=== PATIENT | female | born 1955 | race Caucasian/White ===

== ENCOUNTER 2024-03-03 10:54 | Emergency (ER) | payer MEDICARE ==
[2024-03-03 11:34] VITALS: TEMP 98
--- NOTE | 2024-03-03 11:52 | ED ---
Lower Extremity Injury HPI - General Chief Complaint: Extremity Injury, Lower Stated Complaint: Fall-R knee injury Time Seen by Provider: 03/03/24 11:12 Source: patient, RN notes reviewed Mode of arrival: ambulatory Limitations: no limitations - History of Present Illness Initial Comments: This is a 68-year-old female presenting with for right knee injury that occurred yesterday. Patient states she was walking down her cement steps when she tripped and fell onto the pavement, catching herself with her hands striking fairly hard with her right knee. Patient currently rates pain 9.5 out of 10 and was unable to sleep due to pain. Patient states pain worsens with leg extension, but is able to fully straighten right knee/leg.. Patient states pain radiates upwards through quadricep. Denies distal paresthesia. patient endorses diffuse edema but was able to ambulate following the incident. Patient states she does not normally use a cane for walking problem today. MD Complaint: knee injury Onset/Timin -: days(s) Injury: Knee: Right Worsens With: movement, other (Knee extension) - Related Data Previous Rx's Medication Instructions Recorded Ketorolac [Toradol] 10 mg PO Q6HR #20 tab 03/03/24 Allergies Allergy/AdvReac Type Severity Reaction Status Date / Time No Known Allergies Allergy Verified 03/03/24 10:59 Review of Systems ROS Statement: Those systems with pertinent positive or pertinent negative responses have been documented in the HPI. ROS Other: All systems not noted in ROS Statement are negative. Past Medical History Past Medical History: No Reported History History of Any Multi-Drug Resistant Organisms: None Reported Past Surgical History: No Surgical Hx Reported Past Psychological History: No Psychological Hx Reported Smoking Status: Current every day smoker Past Alcohol Use History: Occasional Past Drug Use History: None Reported General Exam Limitations: no limitations General appearance: alert, in no apparent distress Head exam: Present: atraumatic, normocephalic, normal inspection Eye exam: Present: normal appearance, PERRL, EOMI. Absent: scleral icterus, conjunctival injection, periorbital swelling ENT exam: Present: normal exam, mucous membranes moist Neck exam: Present: normal inspection. Absent: tenderness, meningismus, lymphadenopathy Respiratory exam: Present: normal lung sounds bilaterally. Absent: respiratory distress, wheezes, rales, rhonchi, stridor Cardiovascular Exam: Present: regular rate, normal rhythm, normal heart sounds. Absent: systolic murmur, diastolic murmur, rubs, gallop, clicks GI/Abdominal exam: Present: soft, normal bowel sounds. Absent: distended, t enderness, guarding, rebound, rigid Extremities exam: Present: full ROM, tenderness (Positive diffuse right patellar and peripatellar tenderness and edema. Negative obvious crepitus or deformity. Negative overlying erythema or ecchymosis. Circular 2 cm shallow abrasion noted over patellar.), normal capillary refill, joint swelling, other (Negative [place]'s, varus/valgus. Positive reproducible pain with Jennifer's test). Absent: pedal edema, calf tenderness Back exam: Present: normal inspection Neurological exam: Present: alert, oriented X3, CN II-XII intact Psychiatric exam: Present: normal affect, normal mood Skin exam: Present: warm, dry, intact, normal color. Absent: rash Course Vital Signs 03/03/24 03/03/24 10:57 13:31 Temperature 98 F Pulse Rate 103 H 86 Respiratory 20 16 Rate Blood Pressure 125/78 128/76 O2 Sat by Pulse 99 97 Oximetry Medical Decision Making - Medical Decision Making Was pt. sent in by a medical professional or institution (, PA, BOTTLING LINE OPERATOR, urgent care, hospital, or senior care...) When possible be specific @ -No Did you speak to anyone other than the patient for history (EMS, parent, family, police, friend...)? What history was obtained from this source @ -No Did you review nursing and triage notes (agree or disagree)? Why? @ -I reviewed and agree with nursing and triage notes Were old charts reviewed (outside hosp., previous admission, EMS record, old EKG, old radiological studies, urgent care reports/EKG's, senior care records)? Report findings @ -No old charts were reviewed Differential Diagnosis (chest pain, altered mental status, abdominal pain women, abdominal pain men, vaginal bleeding, weakness, fever, dyspnea, syncope, headache, dizziness, GI bleed, back pain, seizure, CVA, palpatations, mental health, musculoskeletal)? @ -Knee contusion, patellar fracture, ligament sprain, meniscal tear EKG interpreted by me (3pts min.). @ -Not done X-rays interpreted by me (1pt min.). @ -Right knee x-ray reveals a horizontal patellar fracture with without obvious misalignment CT interpreted by me (1pt min.). @ -None done U/S interpreted by me (1pt. min.). @ -None done What testing was considered but not performed or refused? (CT, X-rays, U/S, labs)? Why? @ -None What meds were considered but not given or refused? Why? @ -None Did you discuss the management of the patient with other professionals (professionals i.e. , PA, BOTTLING LINE OPERATOR, lab, RT, psych nurse, social media director, senior wind energy consultant, teacher, space officer, oil field caser)? Give summary @ -No Was smoking cessation discussed for >3mins.? @ -No Was critical care preformed (if so, how long)? @ -No Were there social determinants of health that impacted care today? How? (Homelessness, low income, unemployed, alcoholism, drug addiction, transpor tation, low edu. Level, literacy, decrease access to med. care, [facility], rehab)? @ -No Was there de-escalation of care discussed even if they declined (Discuss DNR or withdrawal of care, Hospice)? DNR status @ -No What co-morbidities impacted this encounter? (DM, HTN, Smoking, COPD, CAD, Cancer, CVA, ARF, Chemo, Hep., AIDS, mental health diagnosis, sleep apnea, morbid obesity)? @ -None Was patient admitted / discharged? Hospital course, mention meds given and route, prescriptions, significant lab abnormalities, going to OR and other pertinent info. @ -Discharge. Knee x-ray results above. Patient notes pain relief with Toradol IM. Patient placed in full knee brace and advised follow-up with orthopedics for ongoing care. Ketorolac p.o. sent for ongoing pain management. Undiagnosed new problem with uncertain prognosis? @ -No Drug Therapy requiring intensive monitoring for toxicity (Heparin, Nitro, Insulin, Cardizem)? @ -No Were any procedures done? @ -No Diagnosis/symptom? @ -Default Acute, or Chronic, or Acute on Chronic? @ -Acute Uncomplicated (without systemic symptoms) or Complicated (systemic symptoms)? @ -Uncomplicated Side effects of treatment? @ -No Exacerbation, Progression, or Severe Exacerbation? @ -No Poses a threat to life or bodily function? How? (Chest pain, [place], [place], pneumonia, PE, COPD, DKA, ARF, appy, cholecystitis, CVA, Diverticulitis, Homicidal, Suicidal, threat to staff... and all critical care pts) @ -No Disposition Clinical Impression: Patellar fracture Disposition: HOME SELF-CARE Condition: Good Instructions (If sedation given, give patient instructions): Patellar Fracture (ED) Prescriptions: Ketorolac [Toradol] 10 mg PO Q6HR #20 tab Is patient prescribed a controlled substance at d/c from ED?: No Referrals: None,Stated [Primary Care Provider] - 1-2 days Time of Disposition: 13:22
[2024-03-03] MEDS: KETOROLAC 15 MG/ML 1 ML VIAL IM STA ×2 (11:59→13:24)
--- NOTE | 2024-03-03 12:52 | XR ---
EXAMINATION TYPE: XR knee 4V RT DATE OF EXAM: 03/03/2024 COMPARISON: NONE HISTORY: Pain TECHNIQUE: Four views are submitted. FINDINGS: Large suprapatellar bursal fluid collection. Generalized demineralization. There is a displaced fract ure involving the patella. Mild narrowing of the medial compartment of the knee joint. IMPRESSION: 1. Displaced acute patellar fracture with large suprapatellar bursal fluid collection. [facility], , 03/03/2024 12:50 PM
[2024-03-03 13:33] VITALS: BP 128/76; PULSE 86; RESP 16
== END 2024-03-03 13:34 | disposition home or self-care (01) ==
LOC: EC 10:54
CPT/HCPCS: 96372; 99283